=== PATIENT | male | born 1990 | race Caucasian/White ===

== ENCOUNTER 2016-06-20 17:04 | Emergency (ER) | payer BC, OTHER ==
[2016-06-20 18:10] VITALS: BP 122/75
--- NOTE | 2016-06-20 18:17 | ERNOTE ---
Upper Extremity HPI - Narrative Date of Service: 06/20/16 - General Extremities Pain Location: forearm: right, wrist: right Time Seen by Provider: 06/20/16 18:17 Source: patient, family Exam Limitations: no limitations - Immun/Allergies/Home Medications Immunizations: IMMUNIZATION HX Immunizations Up to Date Yes History of Influenza Vaccine No Hx Pneumococcal Vaccination No Allergies/Adverse Reactions: Allergies Allergy/AdvReac Type Severity Reaction Status Date / Time Penicillins Allergy Intermediate Hives Verified 06/20/16 17:32 Home Medications: HOME MEDICATIONS NK [No Home Medication] 05/23/13 [Last Taken Unknown] - History of Present Illness Narrative: PT STATES THAT WHILE AT WORK HE FELL OFF THE TONGUE OF AN ANHYDROUS TRUCK AND LANDED ON HIS RIGHT OUTSTRECHED ARM. HE HAS PAIN MAINLY AT THE RADIAL ASPECT OF HIS WRIST. HE IS R HANDED. HE DENIES ANY OTHER INJURY. Occurred: just prior to arrival Review of Systems - Review of Systems Constitutional: Present: See HPI Respiratory: Present: no symptoms reported Cardiology: Present: no symptoms reported Gastrointestinal/Abdominal: Present: no symptoms reported Genitourinary: Present: no symptoms reported Musculoskeletal: Present: See HPI Skin: Present: no symptoms reported Neurological: Present: no symptoms reported Psych: Present: no symptoms reported - Patient's Past Medical History Patient History - Medical: No pertinent hx Patient History - Cardiac/Respiratory: No pertinent hx Patient History - Cancer: No Hx of Cancer Patient History - Surgical Procedures: No surgical history Patient History - Other: None - Social History Living Situations: home Abuse History: No History of abuse Psych History: No pertinent hx Smoking Status: Never smoker Alcohol Use: occasionally Drug Use: none - Immunizations Immunizations Up to Date: Yes Hx Pneumococcal Vaccination: No History of Influenza Vaccine: No Physical Exam - Physical Exam General Appearance: Present: wd/wn, alert, mild distress Extremity Exam: Present: normal inspection, no edema, decreased range of motion - DECREASED FLEXION AND EXTENSION OF RIGHT WRIST. , joint redness - POINT TENDERNESS TO RIGHT SCAPHOID AREA. Neurological Exam: Present: alert, oriented, normal mood/affect, no motor/ sensory deficits - NORMAL NEURO VASCULAR OF RIGHT WRIST AND HAND. Skin Exam: Present: normal color, warm/dry ED Progress - Vital Signs Vital Signs: Vital Signs 06/20/16 06/20/16 17:28 18:07 Temperature 36.1 C L Pulse Rate 70 89 Respiratory 16 18 Rate Blood Pressure 142/64 122/75 O2 Sat by Pulse 99 97 Oximetry - X-Ray X-Ray #1 X-Ray: forearm Interpretation: Interp. by me X-ray Comments: I SEE NO DISTINCT FRACTURE OR DISLOCATION OR DEFORMITY BUT SINCE HE HAS MARKED RIGHT SCAPHOID PAIN I WILL TREAT WITH THUMB SPICA SPLINT AND FOLLOW UP WITH HIS WORKMAN ELYSSA MARIEE - Progress/Reassessment Chief Complaint: Wrist Injury/Pain Procedures Date and time: 06/20/16 19:30 Pre-Proc Neuro Vasc Exam: normal Hand-Made Type: orthoglass Splint: thumb spica - RIGHT FOREARM/WRIST THUMB SPICA WITH OCL Splint applied by: ED physician Post-Proc Neuro Vasc Exam: normal Complications: Pt dereck procedure well Departure Clinical Impression: Wrist pain, right, Occult fracture of scaphoid bone of right wrist - Departure Disposition: Home Follow Up Needed Condition: Good Instructions: Wrist Splint, [id number], Cast or Splint Care, [id number], Wrist Sprain, Scaphoid Fracture Additional Instructions: TRY TO ELEVATE INJURY ABOVE LEVEL OF HEART MUCH POSSIBLE. ICE TO WRIST FOR 20-30 MINS EVERY 4 HOURS FOR 1-2 DAYS. FOLLOW UP WITH OCCUPATIONAL MEDICINE. TYLENOL OR IBUPROFEN OR ALEVE FOR PAIN IF NEEDED. RETURN IF ANY PROBLEMS.
== END 2016-06-20 19:00 | disposition home or self-care (01) ==
LOC: ER 17:04
PROC: 2W3GX1Z Immobilization of Right Thumb using Splint (ICD-10-PCS; principal; 2016-06-20)
DX: S62.001A Unspecified fracture of navicular [scaphoid] bone of right wrist, initial encounter for closed fracture (principal); M25.531 Pain in right wrist; W17.89XA Other fall from one level to another, initial encounter; Y92.89 Other specified places as the place of occurrence of the external cause; Y99.0 Civilian activity done for income or pay